=== PATIENT | female | born 1975 | race African-American/Black ===

== ENCOUNTER 2018-01-18 09:02 | Emergency (ER) | payer MEDICAID ==
[~2018-01-18] VITALS: Ht 180.3 cm; Wt 149.7 kg
[2018-01-18 09:02] VITALS: BP 156/103
== END 2018-01-18 09:51 | disposition home or self-care (01) ==
LOC: EDBD 09:05 → ER 09:05
DX: J45.909 Unspecified asthma, uncomplicated (principal); Z88.8 Allergy status to other drugs, medicaments and biological substances; Z87.891 Personal history of nicotine dependence
CPT/HCPCS: 99283; A4606; Z7610